=== PATIENT | male | born 1935 | race African-American/Black ===

== ENCOUNTER 2023-01-11 08:24 | Emergency (ER) | payer OTHER ==
[2023-01-11 08:39] VITALS: BMI 26.4
[2023-01-11] MEDS ORDERED: VANCOMYCIN/WATER FOR INJ (PEG) 1,000 MG/200 ML BAG IVPB ONE ×2 (10:12→11:55)
[2023-01-11] MEDS ORDERED: PIPERACILLIN/TAZOB 3.375 GM 3.375 GM in DEXTROSE 5%-WATER - 50 ML IVPB ONE (10:12)
[2023-01-11] MEDS ORDERED: PIPERACILLIN/TAZOB 3.375 GM 3.375 GM/50 ML BAG IVPB ONE (11:55)
[2023-01-11 12:14] LABS: VENOUS BASE EXCESS -0.5 mmol/L (-2-2); VENOUS O2 SATURATION 76.3 % (70-80); VENOUS PCO2 38.5 mmHg (38-52); VENOUS PH 7.412 (7.310-7.410)
[2023-01-11 12:37] LABS: HEMATOCRIT 27.7 % (35.4-49); HEMOGLOBIN 8.7 GM/dL (11.7-16.9); MCH 24.7 pg (25.7-33.7); MCHC 31.3 g/dl (32.0-35.9); MEAN CELL VOLUME 78.8 fl (80-96); MEAN PLT VOLUME 9.9 fl (7.5-11.1); PLATELET COUNT 230 10^3/uL (134-434); RBC 3.51 M/mm3 (4.00-5.60); RDW 16.9 % (11.9-15.9); WHITE BLOOD COUNT 18.1 K/mm3 (4.0-10.0)
[2023-01-11 12:42] LABS: INR 1.59 (0.83-1.09); PROTHROMBIN TIME (PATIENT) 18.4 SEC (9.7-13.0)
[2023-01-11 12:44] LABS: ACTIVATED PTT 35.7 SECONDS (25.2-36.5)
[2023-01-11 12:54] LABS: BLOOD UREA NITROGEN 27.4 mg/dL (7-18); CALCIUM 7.8 mg/dL (8.5-10.1)
[2023-01-11 12:55] LABS: ALBUMIN 2.4 g/dl (3.4-5.0)
[2023-01-11 12:57] LABS: CREATININE 1.6 mg/dL (0.55-1.3)
[2023-01-11 12:59] LABS: BILIRUBIN,TOTAL 1.1 mg/dL (0.2-1); TOT PROT 6.9 g/dl (6.4-8.2)
[2023-01-11] MEDS ORDERED: SODIUM CHLORIDE 0.9% 500 ML INFUS.BAG IV ONE (13:03)
[2023-01-11 13:06] LABS: EPI CELLS 2 /uL (0-25.1); HYALINE CASTS 2 /uL (0-3.1); PH,URINE 5.5 (5.0-8.0); URINE APPEARANCE CLOUDY; URINE BACTERIA >9,000 /uL (0-1359); URINE BILIRUBIN NEGATIVE (NEGATIVE); URINE COLOR DK YELLOW; URINE GLUCOSE (UA) NEGATIVE (NEGATIVE); URINE KETONE NEGATIVE (NEGATIVE); URINE LEUK ESTERASE 2+ (NEGATIVE); URINE NITRITE NEGATIVE (NEGATIVE); URINE PROTEIN 3+ (NEGATIVE); URINE RBC 75 /uL (0-23.9); URINE WBC 681 /uL (0-25.8)
[2023-01-11 13:18] LABS: ANISOCYTOSIS 0; MACROCYTOSIS 0
[2023-01-11] MEDS ORDERED: ACETAMINOPHEN 1000 MG/100 ML BAG IVPB ONE (13:19)
[2023-01-11] MEDS ORDERED: SODIUM CHLORIDE FOR INHALATION 3 ML VIAL.NEB IH ONE (13:19)
[2023-01-11] MEDS ORDERED: ACETAMINOPHEN INJECTION 100 ML IVPB ONE (13:31)
[2023-01-11 15:00] VITALS: PULSE 82; RESP 18
[2023-01-11] MEDS ORDERED: ASPIRIN 81 MG CHEWABLE TABLETS PO ONE (15:40)
[2023-01-11] MEDS ORDERED: ASPIRIN 81 MG CHEWABLE TABLETS ONE (15:43)
[2023-01-11 16:36] VITALS: BP 131/82; TEMP 98.3
== END 2023-01-11 16:45 | disposition short-term general hospital (02) ==
LOC: JER 08:24
PROC: 3E03329 Introduction of Other Anti-infective into Peripheral Vein, Percutaneous Approach (ICD-10-PCS; principal; 2023-01-11)
PROC: 3E03329 Introduction of Other Anti-infective into Peripheral Vein, Percutaneous Approach (ICD-10-PCS; 2023-01-11)
PROC: 3E033NZ Introduction of Analgesics, Hypnotics, Sedatives into Peripheral Vein, Percutaneous Approach (ICD-10-PCS; 2023-01-11)
PROC: 3E0F7GC Introduction of Other Therapeutic Substance into Respiratory Tract, Via Natural or Artificial Opening (ICD-10-PCS; 2023-01-11)
DX: R53.1 Weakness (principal); R68.83 Chills (without fever); R30.0 Dysuria; N39.0 Urinary tract infection, site not specified; R77.8 Other specified abnormalities of plasma proteins; N49.2 Inflammatory disorders of scrotum; Z20.822 Contact with and (suspected) exposure to COVID-19
CPT/HCPCS: 0241U-QW; 36415; 70450-TC; 71045-TC-FY; 72125-TC; 74176-TC; 76870-TC; 80053; 81003; 82550; 82553; 82803; 83605; 84484; 85025; 85610; 85730; 86850; 86900; 86901; 87040; 87070; 87076; 87077; 87086; 87186; 87205; 93005; 93010; 99285-25